=== PATIENT | female | born 1985 | race Two or more races ===

== ENCOUNTER → 2020-10-26 | Outpatient (CLI) | payer OTHER ==
[~2020-10-26] MED LIST: ECOTRIN81 MG PO; NIFEDIPINE ER30 M1; NIFEDIPINE20 MG PO; PRENATAL CAPLE1 EAC1 PO
== END | disposition home or self-care (01) ==
LOC: EDBD 18:23 → NST 18:23
PROVIDERS: ATTEND Obstetrics & Gynecology
DX: Z34.83 Encounter for supervision of other normal pregnancy, third trimester (principal)

== ENCOUNTER 2020-11-03 08:26 | Outpatient (CLI) | payer OTHER | END 2020-11-03 09:12 | disposition home or self-care (01) | LOC: EDBD 08:26 → NST 08:26 | PROVIDERS: ATTEND Obstetrics & Gynecology Maternal & Fetal Medicine | DX: Z34.83 Encounter for supervision of other normal pregnancy, third trimester (principal) ==

== ENCOUNTER 2020-11-18 07:26 | Outpatient (CLI) | payer OTHER | END 2020-11-18 08:39 | disposition home or self-care (01) | LOC: EDBD 07:26 → NST 07:26 | PROVIDERS: ATTEND Obstetrics & Gynecology | DX: Z34.83 Encounter for supervision of other normal pregnancy, third trimester (principal) ==

== ENCOUNTER 2020-12-01 08:32 | Outpatient (CLI) | payer OTHER | END 2020-12-01 09:35 | disposition home or self-care (01) | LOC: NST 08:32 → EDBD 08:32 → NST 09:35 | PROVIDERS: ATTEND Obstetrics & Gynecology Maternal & Fetal Medicine | DX: O30.003 Twin pregnancy, unspecified number of placenta and unspecified number of amniotic sacs, third trimester (principal) ==

== ENCOUNTER 2020-12-08 11:43 | Outpatient (CLI) | payer OTHER | END 2020-12-08 12:18 | disposition home or self-care (01) | LOC: EDBD 11:43 → NST 11:43 | PROVIDERS: ATTEND Obstetrics & Gynecology Maternal & Fetal Medicine | DX: Z34.83 Encounter for supervision of other normal pregnancy, third trimester (principal) ==

== ENCOUNTER → 2020-12-15 | Outpatient (CLI) | payer OTHER | END | disposition home or self-care (01) | LOC: NST 14:29 → EDBD 14:29 | PROVIDERS: ATTEND Obstetrics & Gynecology Maternal & Fetal Medicine | DX: Z34.83 Encounter for supervision of other normal pregnancy, third trimester (principal) ==

== ENCOUNTER 2020-12-20 00:17 | Inpatient (IN) | payer OTHER ==
[~2020-12-20] VITALS: Ht 165.1 cm; Wt 78.9 kg
[2020-12-20] MEDS ORDERED: ECOTRIN81 MG PO (10:14)
[2020-12-20] MEDS ORDERED: PRENATAL CAPLE1 EAC1 PO (10:14)
[2020-12-21] MEDS ORDERED: NIFEDIPINE ER30 M1 (08:18)
== END 2020-12-22 14:03 | disposition home or self-care (01) | DRG 833 ==
LOC: OBS/DEL 00:17 → LDR 09:16 → SURG-SUITE 12-21 13:01
PROVIDERS: ADMIT Obstetrics & Gynecology; ATTEND Obstetrics & Gynecology
PROC: 4A1HXFZ Monitoring of Products of Conception, Cardiac Rhythm, External Approach (ICD-10-PCS; principal; 2020-12-20)
PROC: BY4GZZZ Ultrasonography of Third Trimester, Multiple Gestation (ICD-10-PCS; 2020-12-21)
DX: O47.03 False labor before 37 completed weeks of gestation, third trimester (principal); O30.033 Twin pregnancy, monochorionic/diamniotic, third trimester; Z3A.33 33 weeks gestation of pregnancy

== ENCOUNTER 2020-12-29 12:53 | Outpatient (CLI) | payer OTHER ==
[~2020-12-29 12:53] MED LIST changes: -NIFEDIPINE20 MG PO
== END 2020-12-29 13:09 | disposition home or self-care (01) ==
LOC: NST 12:53
PROVIDERS: ATTEND Obstetrics & Gynecology
DX: Z34.83 Encounter for supervision of other normal pregnancy, third trimester (principal)

== ENCOUNTER 2021-01-10 09:15 | Inpatient (IN) | payer OTHER ==
[~2021-01-10] VITALS: Ht 167.6 cm; Wt 2.3 kg
[2021-01-10] MEDS ORDERED: NIFEDIPINE20 MG PO ×2 (12:13→12:14)
[2021-01-15] MEDS ORDERED: OXYC1TAB9 PO (10:17)
[2021-01-15] MEDS ORDERED: KETO10TA2 PO (10:18)
== END 2021-01-15 13:08 | disposition home or self-care (01) | DRG 785 ==
LOC: O/R 01-12 06:08 → OB/GYN 01-12 07:00 → SURG-SUITE 01-12 14:04
PROVIDERS: ADMIT Obstetrics & Gynecology; ATTEND Obstetrics & Gynecology
PROC: 0UB70ZZ Excision of Bilateral Fallopian Tubes, Open Approach (ICD-10-PCS; 2021-01-12)
PROC: 4A1HXFZ Monitoring of Products of Conception, Cardiac Rhythm, External Approach (ICD-10-PCS; 2021-01-12)
PROC: 10D00Z1 Extraction of Products of Conception, Low, Open Approach (ICD-10-PCS; principal; 2021-01-12 07:00)
DX: O30.033 Twin pregnancy, monochorionic/diamniotic, third trimester (principal); O99.824 Streptococcus B carrier state complicating childbirth; Z30.2 Encounter for sterilization; Z3A.37 37 weeks gestation of pregnancy; Z37.2 Twins, both liveborn